=== PATIENT | female | born 1970 | race Caucasian/White ===

== ENCOUNTER 2018-03-08 15:12 | Emergency (ER) | payer MEDICAID ==
[2018-03-08] MEDS: TETRACAINE 0.5% 4 ML OPH RIGHT EYE (17:05)
== END 2018-03-08 17:44 | disposition home or self-care (01) ==
LOC: FTE 15:12
DX: S05.91XA Unspecified injury of right eye and orbit, initial encounter (principal); X58.XXXA Exposure to other specified factors, initial encounter; Y92.9 Unspecified place or not applicable
CPT/HCPCS: 99283; Z7502